=== PATIENT | female | born 1935 | race Caucasian/White ===

== ENCOUNTER 2020-01-02 13:59 | Inpatient (IN) | payer OTHER, MEDICARE ==
[~2020-01-02] VITALS: Ht 172.7 cm; Wt 98.4 kg
[~2020-01-02 13:59] MED LIST: ACCUPRIL PO; CADUET 5 MG-401 EACH PO; PERCOCET 5-3251 EACH PO; TRIAMTERENE-HC1 EAC1 PO
[2020-01-02 14:09] VITALS: BP 122/74
[2020-01-02 14:27] LABS: ABSOLUTE NEUTROPHILS 5.8 thou/uL (1.4-8.2); BASOPHILS 0.7 % (0.0-2.0); EOSINOPHILS 0.7 % (0.0-3.0); HEMATOCRIT 46.9 % (37.0-47.0); HEMOGLOBIN 15.4 gm/dL (12.0-15.0); LYMPHOCYTES 13.7 % (24.0-44.0); MCH 33.5 pg (26.0-34.0); MCHC 32.9 g/dL (28.0-37.0); MCV 101.7 fL (80.0-100.0); MONOCYTES 6.4 % (1.0-8.0); PLATELET COUNT 176 thou/uL (150-400); POLYS 78.5 % (36.0-66.0); RBC 4.61 mil/uL (4.20-5.00); RDW 14.1 % (10.5-14.5); WBC 7.4 thou/uL (4.0-11.0)
[2020-01-02 14:40] LABS: CALCIUM 9.3 mg/dL (8.5-10.1); CREATININE 0.9 mg/dL (0.6-1.0); POTASSIUM 3.3 mmol/L (3.5-5.1)
[2020-01-02 14:43] LABS: TROPONIN-I 0.09 ng/mL (<0.06)
[2020-01-02 15:40] LABS: URINE BLOOD 2+ (Negative); URINE CLARITY CLOUDY; URINE GLUCOSE-RANDOM* TRACE (Negative); URINE KETONES 1+ (Negative); URINE LEUKOCYTES-REFLEX NEGATIVE (Negative); URINE NITRITE-REFLEX NEGATIVE (Negative); URINE PROTEIN (DIPSTICK) 3+ (Negative); URINE SPECIFIC GRAVITY >= 1.030 (1.005-1.035)
[2020-01-02 15:43] LABS: ICTOTEST (BILI CONFIRMATORY) Negative (Negative); URINE BILIRUBIN NEGATIVE (Negative); URINE COLOR DARK YELLOW
[2020-01-02 15:50] LABS: COARSE GRANULAR CASTS 0-3 Few /LPF (None Seen)
[2020-01-02 15:51] LABS: BACTERIA-REFLEX 1-9 Few /HPF (None Seen); CRYSTALS None Seen /LPF (None Seen); SQUAMOUS 0-3 Few /LPF (0-3); URINE RBC 0-2 Rare /HPF (0-2); URINE WBC-REFLEX 0-5 Rare /HPF (0-5)
--- NOTE | 2020-01-02 16:27 | EKG ---
[facility] [place] [address] ELECTROCARDIOGRAM REPORT Name: PASCUAL ADRIAN Room #: [facility]#: [id number] Admission: 01/02/20 Attend Phys: Discharge: Date of : 34 Report #: [id number] THIS REPORT FOR: cc: Blue Monroe MD, Bruce H. MD Lundgren,Jim Leigh MD [facility] ~ THIS REPORT FOR: //name// [facility] ED Test Date: 2020-01-02 Test Time: 14:36:43 Pat Name: PASCUAL ADRIAN Department: Room: Gender: F Warp Knitter: KAREN : 1935 Requested By: Jacob Gage Order Number: [id number] MD: Jim Barbosa Measurements Intervals Raven Rate: 120 P: 70 PA: 155 QRS: 40 QRSD: 103 T: 184 QT: 293 QTc: 414 Interpretive Statements Sinus tachycardia with occasional premature ventricular complexes Poor R wave progression Nonspecific ST and T wave abnormality No previous ECG available for comparison Electronically Signed On 01-02-2020 16:26:05 PRODUCT DEVELOPMENT by Jim Barbosa [email or web address] <ELECTRONICALLY SIGNED> By: Jim Barbosa MD, [facility] 01/02/20 1626 1436 1436 Jim Barbosa MD, [facility] /EPI
[2020-01-02 18:09] VITALS: BP 130/75
--- NOTE | 2020-01-02 18:27 | NUR ---
FIRST ATTEMPT TO CALL REPORT 182
[2020-01-02 18:33] VITALS: BP 107/45
[2020-01-02 19:29] VITALS: BP 114/48
[2020-01-02 23:16] VITALS: BP 112/67
[2020-01-03] VITALS (7 sets, daily range): BP systolic 111–144; BP diastolic 54–95
--- NOTE | 2020-01-03 05:16 | NUR ---
ASSUMED PT CARE AT 1945. PT IS ALERT AND ORIENTED WITH NO SIGN OF DISTRESS NOTED. PT CAME FROM THE ER AT SHIFT CHANGE. ADMISSION ASSESSMENT AND DATA COMPLETED. FALL PRECAUTION IN PLACE. PT HAS A HX L BKA AND WEAR PROTHESICS. DENIES ANY PAIN, SCHEDULED MEDS ADMINISTERED TO PT. TOLERATED PO INTAKE. PT IS ON CARDIZEM DRIP DUE TO AFLUTTER. RATE CONTROLLED. CONTINUE TO MONITOR PATIENT.
[2020-01-03 06:33] LABS: HEMATOCRIT 43.5 % (37.0-47.0); HEMOGLOBIN 14.3 gm/dL (12.0-15.0); MCH 33.3 pg (26.0-34.0); MCHC 32.8 g/dL (28.0-37.0); MCV 101.4 fL (80.0-100.0); RBC 4.29 mil/uL (4.20-5.00); RDW 14.1 % (10.5-14.5); WBC 6.8 thou/uL (4.0-11.0)
[2020-01-03 06:52] LABS: CALCIUM 8.4 mg/dL (8.5-10.1); CREATININE 0.8 mg/dL (0.6-1.0); POTASSIUM 3.4 mmol/L (3.5-5.1)
--- NOTE | 2020-01-03 11:11 | 2DMMODE ---
[facility] [place] [address] 2 D/M-MODE ECHOCARDIOGRAM Name: PASCUAL ADRIAN Room #: 219-P ADM IN M.R.#: [id number] Admission: 01/02/20 Attend Phys: Juno Hurtado MD Discharge: Date of : 34 Report #: [id number] THIS REPORT FOR: cc: Blue Monroe MD, Bruce H. MD Lammoglia, Francisco J. MD ~ APPROVED REPORT Study performed: 01/03/2020 09:05:52 EXAM: Comprehensive 2D, Doppler, and color-flow Echocardiogram Patient Location: Bedside Room #: 219 Status: on-call BSA: 2.24 HR: 90 bpm BP: 144/95 mmHg Other Information Study Quality: Good/sitting up in bed Indications Atrial flutter/fib. Hx: HTN, HLP. 2D Dimensions RVDd: 51.29 mm IVSd: 10.58 (7-11mm) LVOT Diam: 20.85 (18-24mm) LVDd: 49.19 mm PWd: 10.56 (7-11mm) LVDs: 38.26 (25-40mm) Aortic Root: 32.96 mm Volumes Left Atrial Volume (Systole) Single Plane 4CH: 61.65 mL Single Plane 2CH: 75.53 mL LA ESV Index: 33.00 mL/m2 Aortic Valve AoV Peak Jacinto.: 1.62 m/s AO Peak Gr.: 13.98 mmHg LVOT Max P.02 mmHg LVOT Max V: 0.99 m/s YAEL Vmax: 2.09 cm2 [facility] [address] [place] [address] 2 D/M-MODE ECHOCARDIOGRAM Name: PASCUAL ADRIAN Room #: 219-P [facility]#: [id number] Admission: 01/02/20 Attend Phys: Juno Hurtado MD Discharge: Date of : 34 Report #: [id number] Mitral Valve MV Decel. Time: 155.92 ms MV E Max Jacinto.: 1.33 m/s Pulmonary Valve PV Peak Jacinto.: 1.05 m/s PV Peak Gr.: 4.37 mmHg Tricuspid Valve TR Peak Jacinto.: 2.92 m/s RAP Estimate: 10.00 mmHg TR Peak Gr.: 34.41 mmHg PA Pressure: 44.00 mmHg Left Ventricle The left ventricle is normal size. There is normal LV segmental wall motion. There is normal left ventricular wall thickness. Left ventricular systolic function is normal. LVEF is 55%. This study is not technically sufficient to allow evaluation of the LV diastolic function due to atrial fibrillation. Right Ventricle Right ventricle is severely dilated. Right ventricle is moderately hypokinetic. Atria Left atrium is mildly dilated. Right atrium is severely dilated. Aortic Valve The aortic valve is normal in structure. Leaflets are moderately calcified. No aortic regurgitation is present. There is no aortic valvular stenosis. Mitral Valve Mitral valve leaflets are thickened and calcified. Mild to moderate mitral regurgitation. No evidence of mitral valve stenosis. Tricuspid Valve The tricuspid valve is normal in structure. Moderate tricuspid regurgitation. Estimated PAP is 45mmHg. Pulmonic Valve Pulmonic valve is not well visualized. Great Vessels The aortic root is normal in size. Ascending aorta is not well [facility] [address] [place] [address] 2 D/M-MODE ECHOCARDIOGRAM Name: PASCUAL ADRIAN Room #: 219-P [facility] IN [facility]#: [id number] Admission: 01/02/20 Attend Phys: Juno Hurtado MD Discharge: Date of : 34 Report #: [id number] visualized. IVC is normal in size and collapses <50% with inspiration. Pericardium There is no pericardial effusion. <Conclusion> The left ventricle is normal size. LVEF is 55%. Right ventricle is severely dilated. Right ventricle is moderately hypokinetic. Left atrium is mildly dilated. Right atrium is severely dilated. The aortic valve is normal in structure. Leaflets are moderately calcified. Mitral valve leaflets are thickened and calcified. Mild to moderate mitral regurgitation. The tricuspid valve is normal in structure. Moderate tricuspid regurgitation. Estimated PAP is 45mmHg. Pulmonic valve is not well visualized. There is no pericardial effusion. <ELECTRONICALLY SIGNED> By: Rodo Bueno MD 01/03/201109 09 09 Rodo Bueno MD /INF
--- NOTE | 2020-01-03 16:38 | NUR ---
PT CARE ASSUMED APPROXIMATELY 0700. PT ASSESSMENTS CHARTED. PT MEDICATIONS CHARTED. PT IS A LEFT BELOW KNEE AMPUTEE WITH PROSTHESIS. PT REMAINS ON AMIODARONE TITRATED TO MAINTAIN HEART RATE PARAMETERS.
[2020-01-04 03:30] VITALS: BP 136/68
--- NOTE | 2020-01-04 04:56 | NUR ---
ASSUMED PT CARE AT 190. PT IS ALERT AND ORIENTED. NO SIGN OF DISTRESS NOTED IN PT. PT IS STABLE. A-FLUTTER NOTICED ON THE MONITOR. DENIES ANY PAIN. FALL PRECAUTION IN PLACE. ASSESSMENT COMPLETED AND DOCUMENTED. VITAL SIGNS STABLE. CONTINUE TO MONITOR PT. DENIES ANY NEEDS AT THIS TIME.
[2020-01-04 05:51] LABS: ALBUMIN 2.6 g/dL (3.4-5.0); CALCIUM 8.3 mg/dL (8.5-10.1); CREATININE 0.7 mg/dL (0.6-1.0); POTASSIUM 3.3 mmol/L (3.5-5.1); TOTAL BILIRUBIN 0.9 mg/dL (<0.1-1.0); TOTAL PROTEIN 6.2 g/dL (6.4-8.2)
[2020-01-04 08:10] VITALS: BP 116/72
[2020-01-04 08:28] VITALS: BP 116/72
[2020-01-04 12:30] VITALS: BP 133/65
[2020-01-04 16:30] VITALS: BP 139/85
--- NOTE | 2020-01-04 18:07 | NUR ---
PT CARE ASSUMED APPROXIMATELY 0700. PT ASSESSMENTS CHARTED. PT MEDICATIONS GIVEN. PT REMAINS ON CARDEZIEM AT 10 MG/MIN. PT DENIES PAIN AND IS IN GOOD SPIRITS.
[2020-01-04 20:19] VITALS: BP 116/82
[2020-01-05 00:30] VITALS: BP 137/75
[2020-01-05 04:47] VITALS: BP 146/83
[2020-01-05 05:38] LABS: CALCIUM 8.7 mg/dL (8.5-10.1); CREATININE 0.7 mg/dL (0.6-1.0); POTASSIUM 3.4 mmol/L (3.5-5.1)
--- NOTE | 2020-01-05 05:56 | NUR ---
A/O X 3.DENIES PAIN.NPO SINCE MIDNIGHT FOR A POSSIBLE STRESS TEST TODAY.ON CARDIZEM GTT.MONITOR SHOWS AFIB.POC CONTINUED.
[2020-01-05 08:00] VITALS: BP 127/78
--- NOTE | 2020-01-05 08:02 | NUR ---
ASSUMED CARE OF PT APPROX 0715, A&0X4, STATES SHE LIVES ALONE, STATES SHE WAS GETTING AROUND OKAY BUT HER RIGHT LEG HAS BEEN TOO WEAK. ENCOURAGED HER WHILE RESTING/HEALING TO STRETCH AND DO SOME LEG LIFTS IF POSSIBLE. STATES HER AMPUTATION WAS ABOUT THREE YEARS AGO, WEARS PROSTHESIS AT HOME, AT TIMES. HAS SOA IN BED, 3L IS HER BASELINE. WILL PRINT OUT DYSRHYTHMIA SHEET SHE'S ASKING QUESTIONS. 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 RLE CELLULITIS, CHRONIC. ENCOURAGED HER TO USE CALL LIGHT FOR ANY NEEDS. HAS BEEN WORKING WITH [facility].SEE SEPARATE INTERVENTIONS FOR ASSESSMENTS. HAS STRESS TEST THIS A.M.
--- NOTE | 2020-01-05 10:32 | NUR ---
PT'S WHEEL CHAIR AT HOME IS VERY OLD AND NOW BROKE; SHE'S ASKING ABOUT SUPPLIES FOR HOME TO HELP WITH DAILY LIVING CONSIDERING HER LBKA. BARS, ETC. WILL SPEAK WITH CASE MGMT WHEN DISCUSSING PT.
--- NOTE | 2020-01-05 11:14 | NUR ---
PHYSICIAN CALL: PT NPO SCHEDULED FOR NUC STRESS TEST, ORDERS GIVEN TO D/C GTT AND START PO, NUC MED SAID THEY NEEDED TO WAIT UNTIL TOMORROW FOR STRESS TEST, 'S OFFICE CALLED TO SAY PT COULD TAKE THE MEDICATIONS AND THEY WOULD 'DO SOMETHING ELSE'. GAVE HER HALF A MUFFIN AND THREE BITES OF APPLESAUCE WITH A.M. MEDS SO SHE WOULDN'T BECOME NAUSEAS. THEN ACK ORDERS FOR CARDIAC CATH TODAY JUST NOW. CALLED OFFICE TO GIVE THEM AN FYI.
[2020-01-05 11:50] VITALS: BP 115/60
[2020-01-05 13:00] LABS: TSH 3.3 uIU/mL (0.358-3.740)
--- NOTE | 2020-01-05 15:00 | NUR ---
Pt admit d/t weakness. Consult for wound. Hx HTN, high cholesterol, left BKA. EKG indicated atrial flutter. 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 Also right LE edema and nonhealing wound. Pt reported poor appetite and intake for about 1 week prior to admit d/t fatigue and weakness. Stated she normally only eats about 2 meals per day. Appetite over admit has been much better and Pt stated the consistent timing of meals helps with her intake. Discussed importance of protein foods for wound healing and limits on fat and sodium for heart healthy diet. Intake was 100% yesterday. Weight increased from 248# to 266#, positive fluid balance noted. Meds include budesonide, lipitor, fish oil, spironolactone. B, K: 3.4. Pt was aware of how to call in meal changes. Consider to be low nutritional risk at this time.
--- NOTE | 2020-01-05 15:11 | NUR ---
Net with patient who reports she lives at home alone. All needs on one level. patient reports she was rec HH cryptanalyst but cannot recall HH agency. patient has BKA and prosethesis. She reports she needs a wc at home. She has a broken one and has had for many years. She has home oxygen usu at 2.5 liters. Kiley Jasso is provider. PCP Dr Blue Salomon he is out of . Patient has a dog at home that her friend is caring for at this time. Discussed skilled care possible need for rehab. patient strongly wants to dc home when stable. Therapy evals in process.
[2020-01-05 17:00] VITALS: BP 131/84
[2020-01-05 20:00] VITALS: BP 130/76
[2020-01-06] VITALS (16 sets, daily range): BP systolic 106–141; BP diastolic 57–92
--- NOTE | 2020-01-06 05:41 | NUR ---
NPO SINCE MIDNIGHT FOR A POSSIBLE PROCEDURE TODAY.REPOSITIONED.MONITOR SHOWS AFIB WITH RVR.CARDIZEM PO X 1 GIVEN.HEART RATE IS NOW CONTROLLED.O2 3L NC.POC CONTINUED.
--- NOTE | 2020-01-06 10:51 | NUR ---
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 ON 3L NC, AFIB RATE CONTROLLED. DENIES PAIN, PO CARDIZEM GIVEN THIS AM WITH SIPS OF WATER. WILL CONTINUE TO ASSESS AND ASSIST WITH ADLs NEEDED.
--- NOTE | 2020-01-06 13:20 | NUR ---
PATIENT SEEN FOR ACUTE REHAB CONSULT BY MARIA R FRENCH NP WITH DR. ANDERS. PATIENT IS A CANDIDATE FOR ACUTE REHAB. 5N ABLE TO ACCEPT PATIENT. PATIENT HAVING PROCEDURE THIS DATE, BUT ANTICIPATE WILL BE MEDICALLY READY FOR REHAB ADMISSION TOMORROW, 01/07. REHAB BED AVAILABLE FOR TOMORROW. THANK YOU FOR THIS REFERRAL.
--- NOTE | 2020-01-06 17:32 | NUR ---
PT CAME back from technical laboratory asst at 1445, hemostasis was 1430, bedrest until 2030. left groin site is clean, dry, intact. vs documented as per flowsheet. will continue to assess and assist with adlS as needed.
[2020-01-07 05:07] VITALS: BP 152/75
--- NOTE | 2020-01-07 05:45 | NUR ---
ASSUMED PT CARE AROUND 1910. PT WAS RESTING IN BED WATCHING TELEVISION. PT WAS OFF BEDREST FROM PROCEDURE AT 2030. DRESSING TO LEFT GROIN SITE C/D/I. PT HAD NO C/O PAIN, N/V/D, OR SOA. PT VITALS REMAINED STABLE. PT VOIDED POST BEDREST WITH ADEQUATE OUTPUT. PT RESTED THRU NIGHT WITH MINIMAL INTERRUPTIONS. WILL CONTINUE TO MONITOR PT PER PLAN OF CARE.
[2020-01-07 06:02] LABS: HEMATOCRIT 44.7 % (37.0-47.0); HEMOGLOBIN 14.4 gm/dL (12.0-15.0); MCHC 32.1 g/dL (28.0-37.0); MCV 102.7 fL (80.0-100.0); RBC 4.36 mil/uL (4.20-5.00); RDW 14.8 % (10.5-14.5); WBC 7.4 thou/uL (4.0-11.0)
[2020-01-07 06:07] LABS: CALCIUM 8.6 mg/dL (8.5-10.1); CREATININE 0.6 mg/dL (0.6-1.0); POTASSIUM 3.8 mmol/L (3.5-5.1)
[2020-01-07 07:50] VITALS: BP 146/73
--- NOTE | 2020-01-07 09:55 | NUR ---
ASSUMED CARE AT 0700, SHIFT ASSESSMENT DONE, MEDS GIVEN, VSS. DR BANSAL'S NURSE INDICATED PT IS NOT GOING TO GO FOR SURGERY TODAY. AFIB RATE CONTROLLED ON THE MONITOR. WOUND CARE TO THE RIGHT LOWER LEG DONE. CATH SITE, LEFT GROIN, IS CLEAN DRY INTACT, NO HEMATOMA. WILL CONTINUE TO ASSESS AND ASSIST WITH ADLs NEEDED.
[2020-01-07 11:00] VITALS: BP 135/85
--- NOTE | 2020-01-07 12:06 | NUR ---
patient accepted to 5N once Dr Enriquez clears to transfer. RN reports Dr Enriquez saw patient and in discussion with consultants regarding intervention. No sx today. Updated patients sister in law Valerie .
[2020-01-07 16:40] VITALS: BP 116/71
[2020-01-07 19:35] VITALS: BP 122/72
--- NOTE | 2020-01-07 22:39 | CATHLAB ---
[facility] [place] [address] INVASIVE PROCEDURE REPORT Name: PASCUAL ADRIAN Room #: 219-P ADM IN M.R.#: [id number] Admission: 01/02/20 Attend Phys: Juno Hurtado MD Discharge: Date of : 34 Report #: [id number] THIS REPORT FOR: cc: Blue Monroe MD, Bruce H. MD Lammoglia, Francisco J. MD ~ APPROVED REPORT Study performed: 01/06/2020 13:29:19 Patient Details Patient Status: In-Patient Room #: 219 The patient is a 84 year-old female Event Personnel Rodo Bueno Traffic Investigator; , Mathew Ibrahim RN, Sarah Tolbert RTR Neil Watson Nancy RTR, SURFACE MOUNT TECHNOLOGY OPERATOR Monitor Procedures Performed Left Heart Cath w/or w/o Coronaries [id number] [facility] 19479 Initial Mod Sed Same Phys/QHP Gr 301689 34419 Mod Sed Same Phys/QHP Ea [id number] Hemostasis with Manual pressure, supervision of conscious sedation Indication Atrial fibrillation, Chest pain Procedure Narrative A 5F 11CM CORDIS sheath was inserted into the LFA^. Coronary angiography was performed using coronary diagnostic catheters. The right coronary system was accessed and visualized with a JR4 catheter. The left coronary system was accessed and visualized with a JL4 catheter. The left ventricle was accessed and visualized with a angled pigtail catheter. Left ventricular/Aortic Valve gradient assessed via catheter pullback. Hemostasis was obtained with manual pressure following sheath removal without any complications. The patient tolerated the procedure well and there were no complications associated with the procedure. There was no hematoma. Intraoperative Conscious Sedation Sedation start time: 12:36 Case end Time: 14:16 Fentanyl 50 mcg Versed [address] mg [facility] [place] [address] INVASIVE PROCEDURE REPORT Name: PASCUAL ADRIAN Room #: 219-P [facility] IN [facility].#: [id number] Admission: 01/02/20 Attend Phys: Juno Hurtado MD Discharge: Date of : 34 Report #: [id number] Visipaque 270-128ml was used for lower extremity runoff Conscious sedation is a total for lower extremity runoff and the left heart cath. Fluoro time and dose are a combined total for the lower extremity runoff and left heart cath. Fluoro Time: 7.96 minutes Dose: DAP 17363.80 cGycm2 1863 mGy Contrast Type and Amount: Omnipaque 45 ml Coronary Angiography The patient's coronary anatomy is right dominant. Diagnostic Cath Left Main large caliber vessel normal origin bifurcates left into the seventh of circumflex free of high-grade disease LAD once a large caliber type III vessel courses in the anterior interventricular sulcus. This was a septal diagonal branches without high-grade lesions noted. The proximal mid LAD there is a little region of haziness but appears to be secondary to a tortuosity in the vessel itself. There is luminal irregularities present but no high-grade obstructive lesions Diagonal 1 small-caliber vessel coursing along the anterolateral wall for short distances. High-grade disease but highly tortuous Diagonal 2 diminutive size vessel without high-grade lesions but quite tortuous in its course Circumflex to a vessel of normal origin coursing the AV groove to the lateral aspect of the heart. It gives rise to a large bifurcating marginal branch and then terminates as a posterior wall branch. The vessels are highly tortuous digestive of hypertensive heart disease. No irregularities are present but no high-grade lesions are noted OM1 moderate caliber bifurcating vessel which is free of high-grade disease OM2 small to moderate caliber vessel without significant stenosis noted but mild irregularities are present Right Coronary moderate caliberr vessel of normal origin coursing in the AV groove to the crux of the heart. Giving rise to atrial and right ventricular branches was a small in size and length. There is a proper then gives rise to a small posterior descending artery and terminates as a small posterior wall branch R PDA small caliber vessel coursing in the posterior interventricular sulcus free of high-grade disease although there is evidence of irregularities of mild to moderate level. Left Ventriculography [address] [address] INVASIVE PROCEDURE REPORT Name: PASCUAL ADRIAN Room #: 219-P [facility] IN M.R.#: [id number] Admission: 01/02/20 Attend Phys: Juno Hurtado MD Discharge: Date of : 34 Report #: [id number] Left Ventriculography was not performed. Hemodynamics The aortic pressure is 142/80 mmHg with a mean of 102 mmHg. The left ventricular pressure is 160/24 mmHg with a mean of mmHg. The left ventricular end diastolic pressure is 37 mmHg. Conclusion 1. Coronary artery disease mild nonobstructive with highly tortuous vessel consistent with hypertensive cardiomyopathy 2. Abnormal hemodynamics with elevated liver ventricular end-diastolic pressure. Recommendations Cardiac Risk Reduction Program Medical Therapy <ELECTRONICALLY SIGNED> By: Rodo Bueno MD 01/07/202237 37 37 Rodo Bueno MD /INF
[2020-01-08 04:15] VITALS: BP 117/88
--- NOTE | 2020-01-08 05:47 | NUR ---
ASSUMED PATIENT CARE AROUND 1909. PT RESTING IN BED WATCHING TELEVISION. PT HAD ADEQUATE INPUT/OUTPUT THRU NIGHT. PT HAD ZERO C/O OF SOA, PAIN, N/V/D. WOUND CARE AND DRESSING CHANGE TO RIGHT LOWER EXTREMITY PER ORDERS. PT CONTINUED RECEIVING FLUIDS PER IV. WILL CONTINUE TO MONITOR PER PLAN OF CARE.
[2020-01-08 07:30] VITALS: BP 127/63
[2020-01-08 11:30] VITALS: BP 123/76
[2020-01-08] MEDS ORDERED: LIPITOR40 MG PO (12:14)
[2020-01-08] MEDS ORDERED: DILTIAZEM 24HR180 M1 PO (12:15)
--- NOTE | 2020-01-08 13:03 | NUR ---
Pt cleared for dc to acute rehab on 5N today. Pt is aware and agreeable. Her sister in law Valerie was notified as well as she is agreeable. Nursing to call report this afternoon and confirm room number. 5N cm to follow along and arrange for hh/dme needs when dc'd home from rehab.
--- NOTE | 2020-01-11 08:46 | HC ---
[facility] [place] [address] CONSULTATION Name: PASCUAL ADRIAN Room #: 219-P [facility] IN M.R.#: [id number] Admission: 01/02/20 Attend Phys: Juno Hurtado MD Discharge: 01/08/20 Date of : 33 Report #: [id number] THIS REPORT FOR: cc: Blue Monroe MD, Bruce H. MD Forman, John M. MD ~ CC: Blue Hurtado DATE OF SERVICE: 01/06/2020 We were asked by Dr. Boles to see the patient. HISTORY OF PRESENT ILLNESS: The patient is an 84-year-old admitted on 01/02/2020 complaining of generalized weakness. The patient had multiple falls in the last few days prior to admission. The patient lives alone at home. PAST MEDICAL HISTORY: Significant for knee replacements and bilateral ankle fractures. 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 MEDICATIONS AT HOME: Includes quinapril, amlodipine, atorvastatin, triamterene/hydrochlorothiazide. ALLERGIES: None known. PAST SURGICAL HISTORY: Previous surgery, bilateral knee replacements, bilateral ankle replacements and knee amputation. FAMILY HISTORY: Not contributory. SOCIAL HISTORY: The patient states she has no children. REVIEW OF SYSTEMS: GENERAL/CONSTITUTIONAL: Negative for fevers. Positive for generalized weakness. EYES: No eye pain, no vision change. EARS: No rhinorrhea, sore throat. RESPIRATORY: No cough, shortness of breath. CARDIAC: No chest pain or palpitations. GASTROINTESTINAL: No nausea, vomiting, abdominal pain or blood. GENITOURINARY: No burning, frequency, urgency or blood. MUSCULOSKELETAL: No bone or joint pain. SKIN: No rash or infection. Per se, the patient is being treated for a nonhealing ulcer on the posterior right calf. ENDOCRINE: Denies diabetes or thyroid problems. [facility] [address] [place] [address] CONSULTATION Name: PASCUAL ADRIAN Room #: 219-P [facility]#: [id number] Admission: 01/02/20 Attend Phys: Juno Hurtado MD Discharge: 01/08/20 Date of : 34 Report #: [id number] HEMATOLOGIC AND LYMPHATIC: No bleeding. No easy bruisability. PHYSICAL EXAMINATION: GENERAL: The patient is lying in bed, status post cardiac catheterization. VITAL SIGNS: Temperature 36.6, pulse rate 87, respiratory rate 20, blood pressure 139/71, O2 sat 93 on 3 liters. HEENT: No scleral icterus, no arcus. NECK: No mass, no bruit. CHEST: Clear on the right side, decreased breath sounds, somewhat on the left side. __ pitched wheeze seems to be airway rather than pulmonary per se. CARDIAC: Distant heart tones. I do not hear a murmur. ABDOMEN: Soft, no mass. EXTREMITIES: We note the left below knee amputation and right leg has a bandage on the posterior calf, groin has intertriginous areas that are somewhat macerated. I do not feel right-sided popliteal or distal pulses. 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 There was a particular subtotal occlusion in the right common femoral artery. The aorta and iliac vessels were patent, but clearly calcified. We have been asked to assess the patient for right femoral endarterectomy certainly anatomically this is reasonable. My overriding concern is risk of infection with this procedure. It is difficult to cleanse the groin in the best case, but there may be chronic colonization that would predispose the perioperative infection. If it is felt that this procedure is necessary for wound healing, then it would be reasonable to proceed. I will confer with the others. Thank you for the consult. <ELECTRONICALLY SIGNED> By: Markie Vallecillo MD 01/11/20 [id number] Markie Vallecillo MD /nt
== END 2020-01-08 16:07 | DRG 286 ==
LOC: ER 13:59 → EROBS 17:18 → 2N 17:18
PROVIDERS: Emergency Medicine; Internal Medicine; Internal Medicine Geriatric Medicine; Nurse Practitioner; ADMIT Hospitalist
PROC: 4A023N7 Measurement of Cardiac Sampling and Pressure, Left Heart, Percutaneous Approach (ICD-10-PCS; principal; 2020-01-02)
PROC: B2111ZZ Fluoroscopy of Multiple Coronary Arteries using Low Osmolar Contrast (ICD-10-PCS; principal; 2020-01-02)
DX: I48.91 Unspecified atrial fibrillation (principal); E43 Unspecified severe protein-calorie malnutrition; L97.229 Non-pressure chronic ulcer of left calf with unspecified severity; I74.3 Embolism and thrombosis of arteries of the lower extremities; I73.9 Peripheral vascular disease, unspecified; I10 Essential (primary) hypertension; Z96.653 Presence of artificial knee joint, bilateral; Z96.662 Presence of left artificial ankle joint; Z96.661 Presence of right artificial ankle joint; E78.00 Pure hypercholesterolemia, unspecified; E78.5 Hyperlipidemia, unspecified; I49.9 Cardiac arrhythmia, unspecified; J44.9 Chronic obstructive pulmonary disease, unspecified; I77.1 Stricture of artery; S81.801A Unspecified open wound, right lower leg, initial encounter; X58.XXXA Exposure to other specified factors, initial encounter; E83.42 Hypomagnesemia; E87.6 Hypokalemia; G47.00 Insomnia, unspecified; Z99.81 Dependence on supplemental oxygen; Z68.33 Body mass index [BMI] 33.0-33.9, adult; Z91.81 History of falling; Y92.89 Other specified places as the place of occurrence of the external cause; Z79.01 Long term (current) use of anticoagulants; Z89.512 Acquired absence of left leg below knee; Y93.89 Activity, other specified; Z79.891 Long term (current) use of opiate analgesic; Y99.8 Other external cause status; Z79.899 Other long term (current) drug therapy
CPT/HCPCS: 10081

== ENCOUNTER 2020-01-07 13:54 | Inpatient (IN) | payer OTHER, MEDICARE ==
[~2020-01-07] VITALS: Ht 172.7 cm; Wt 107.5 kg
[2020-01-08] MEDS ORDERED: LIPITOR40 MG PO (12:14)
[2020-01-08] MEDS ORDERED: DILTIAZEM 24HR180 M1 PO (12:15)
[2020-01-08 16:20] VITALS: BP 125/94
--- NOTE | 2020-01-08 18:45 | NUR ---
PT ARRIVED TO UNIT VIA BED BY VOLUNTEER STAFF. ADMISSION EDUCATION PROVIDED, ADMISSION COMPLETE EXCEPT WOUND PICS WILL PASS INFO ALONG IN REPORT. CONSENTS SIGNED, FALL PRECAUTIONS IN PLACE. PT ON 5L NC, NO S/S RESPIRATORY DISTRESS NOTED. PATIENT DENIES PAIN OR OTHER NEEDS AT THIS TIME.
[2020-01-08 20:00] VITALS: BP 124/84
--- NOTE | 2020-01-09 02:34 | NUR ---
PT ALERT AND ORIENTED X 4. 02 ON AT 5L PER NC CONT. RLE WOUND DRESSING C/D/I. PT DENIES PAIN OR DISCOMFORT. BED ALARM ON FOR SAFETY. PT APPEARS TO BE SLEEPING ON HOURLY ROUNDS.
[2020-01-09 06:49] LABS: HEMATOCRIT 44.1 % (37.0-47.0); HEMOGLOBIN 14.3 gm/dL (12.0-15.0); MCH 33.3 pg (26.0-34.0); MCHC 32.4 g/dL (28.0-37.0); MCV 102.8 fL (80.0-100.0); RBC 4.29 mil/uL (4.20-5.00); RDW 14.9 % (10.5-14.5); WBC 6.9 thou/uL (4.0-11.0)
[2020-01-09 07:03] LABS: CREATININE 0.7 mg/dL (0.6-1.0); POTASSIUM 3.9 mmol/L (3.5-5.1)
--- NOTE | 2020-01-09 13:42 | NUR ---
Nutrition: pt admit to rehab unit with cardiac debility, hx Left BKA. Consulted due to wound which is RLE ulcer. PMH: HTN, Hypercholesterolemia, iliac femoral artery stenosis. BMI 43, extreme class 3 obesity. Weights trending up due to fluid. On spironolactone. Eating 80-90% of meals on Heart healthy carb controlled diet. No recent BG. Pt voices no questions for RD at present. Understands importance of protein foods and able to order meals. Consider low risk.
--- NOTE | 2020-01-09 14:42 | NUR ---
Met with patient who admits to rehab unit. Her neighbor is at bedside [place] [address] [facility] [place] [address]. He reports he checks on patient. They both use same dog boarder Marlen who is caring for patients dog while she is in rehab. Neighbor reports willing to be DPOA for health care for intermittant time in hospital. RN paged spiritual care. Patient agreeable. She has limited support. Her relative Valerie sister in law lives in [place]. Valerie notified of admission to rehab unit. "I hope you can help her." Valerie reports patient appears not motivated to help herself. She reports she sits most of day and does not excercise. Patient has a walker, prosethesis, w/c (she needs replaced). From [facility] has chair lift and lives [place]. MANAGEMENT ASSISTANT patient has HH with [place] at home. SHERI Padilla to visit in month or so.
--- NOTE | 2020-01-09 17:11 | NUR ---
RECEIVED PT'S CARE AROUND 704; PT. ON BED; A0X4; DURING ASSESSMENT NO C/O PAIN; ABLE TO HAVE BREAKFAST OVER WHEELCHAIR IN ROOM; EDUCATED ABOUT FALL PREVENTIONS; ST. UNDERSTANDING; AM MEDICATION GIVEN; PER OT REPORT PT. SOB WITH EXERTION; O2 UP 5L; PT. CHRONIC 02 2.5-3L; MODERATE NEEDS TEACHER NOTIFIED WHILE ROUNDING; CONSULT CALLED FOR DR. TRAVIS; PT'S HX BLOOD THINNER; ST; MODERATE NEEDS TEACHER NOTIFIED; WOUND CARE WILL BE PERFORMED AFTER DINNER; PT. ST UNDERSTANDING; DURING THE AFTERNOON NEIGHBOOR ST. CONCERNED ABOUT PT'S LIVING SITUATUION & DPOA; REQUESTED MEETING WITH PORTFOLIO SPECIALIST; PORTFOLIO SPECIALIST AWARED; ASSESSMENT CHARGED; FOLLOWING POC; WILL PASS ON REPORT;
[2020-01-09 19:55] VITALS: BP 121/78
--- NOTE | 2020-01-10 01:02 | NUR ---
PT ASSESSMENT COMPLETED AND VSS. MEDS GIVEN ORDERED AND WELL TOLERATED. FALL PRECAUTIONS IN PLACE. INC OF LARGE AMOUNT OF URINE. ASST WITH REPOSITION FOR COMFORT. BARRIER CREAM APPLIED TO COCCYX. SAT WNL ON 5L NC. PT SLEEPING WELL. DENIES NEEDS. WILL CONTINUE TO MONITOR FREQUENTLY.
[2020-01-10 08:10] VITALS: BP 140/81
--- NOTE | 2020-01-10 11:18 | NUR ---
ASSUMED CARE AT 0700. PATIENT IS A & O X4. PATIENT CRISTAL'Mo. PATIENT HAS OLD BKA. PATIENT HAS RIGHT LOWER LEG CELLULITIS. BORDER DRESSING CHANGED TO RIGHT LEG. PATIENT IS ON 6L PER N/C FOR COPD AND SOA. PATIENT IS INCONTINENT OF URINE AND BOWELS. PATIENT HAS S.L. IN HER RIGHT WRIST. UP IN THE CHAIR FOR BREAKFAST. FALL AND SAFETY PROTOCOLS IN PLACE. DENIES PAIN AT THIS TIME. CONTINUES TO PROGRESS SLOWLY TOWARDS D/C GOALS. WILL CONTINUE TO MONITER.
[2020-01-10 20:41] VITALS: BP 139/91
--- NOTE | 2020-01-10 23:05 | NUR ---
PT ASSESSMENT COMPLETED AND VSS. MEDS GIVEN ORDERED AND WELL TOLERATED. FALL PRECAUTIONS IN PLACE. PT HAD A BM AND VOIDING LARGE AMOUNT IN BEDPAN. INC OF LARGE AMOUNTS OF URINE. SAT WNL ON 5-6 L NC. ASST WITH REPOSITION FOR COMFORT. SLEEPING WELL. WILL CONTINUE TO MONITOR FREQUENTLY.
[2020-01-11 08:00] VITALS: BP 133/85
--- NOTE | 2020-01-11 11:16 | NUR ---
PT CARE ASSUMED AT 0700. A&Ox4. ON 5L SATING ON 96%. ON 2-3L AT HOME. EXTERNAL RICHARD APPLIED. LUNGS SOUND DIMINISHED. INCONTINENT TO BLADDER NOT BOWEL. EDEMA TO THE RIGHT LEG +2. PT LIVES ALONE AT HOME. IV IS PATENT WITH NO REDNESS OR EDEMA. SALINE LOCKED. FALL PROTOCOL IN PLACE. PT PIVOTS WITH 2 MAX ASSIST TO THE WHEELCHAIR. CALL LIGHT IN REACH.
[2020-01-11 11:25] VITALS: BP 133/85
[2020-01-11 19:33] VITALS: BP 122/78
--- NOTE | 2020-01-11 23:47 | NUR ---
PT ALERT AND ORIENTED X 4. 02 0N AT 5L PER NC CONT. INCONT OF URINE. FEMALE EXTERNAL CATHETER CHANGED. RIGHT LEG WOUND DRESSING CHANGED. NO DRAINAGE FROM WOUND. PT C/O BACK PAIN. TYLENOL GIVEN ORDERED. BED ALARM ON FOR SAFETY. PT APPEARS TO BE SLEEPING ON HOURLY ROUNDS.
[2020-01-12 07:01] VITALS: BP 125/76
[2020-01-12 19:35] VITALS: BP 123/71
--- NOTE | 2020-01-12 20:11 | NUR ---
PATIENT ALERT AND ORIENT AND COOPERATIVE WITH POC. CONTIUES ON 5LPM NC AND UP TO 8LPM WITH EXPERTION TO MAINTAIN O2 SATS.
--- NOTE | 2020-01-12 20:19 | HC ---
[facility] [place] [address] CONSULTATION Name: PASCUAL ADRIAN Room #: 509-P ADM IN M.R.#: [id number] Admission: 01/08/20 Attend Phys: Niko Dorsey MD Discharge: Date of : 34 Report #: [id number] THIS REPORT FOR: cc: Blue Monroe MD, Bruce H. MD Deutch,Adam Leblanc. PhD ~ CC: Blue Dorsey DATE OF SERVICE: 01/10/2020 NEUROBEHAVIORAL STATUS EXAM ATTENDING PHYSICIAN: Niko Dorsey MD WAGE CONCILIATOR: Adam Inman, PhD CLINICAL PRESENTATION: The patient is an 84-year-old female admitted to [facility] rehabilitation unit for comprehensive inpatient rehabilitation program. She was reported to have had problems with management of general health care needs and was admitted to the hospital with weakness, dizziness, poor appetite, atrial flutter, a right calf wound and peripheral vascular disease. Additionally, she has had a left [id number] amputation. Her assessment on admission to the rehab unit is medical complexity with generalized debilitation, atrial flutter, peripheral vascular disease with right common femoral artery 95% stenosis, right lower extremity wound, COPD and hypertension. A complete description of her medical condition and history along with medications can be found in her medical record. Neuropsychological consultation was requested to provide assistance in the assessment of cognitive and emotional status and to provide recommendations and services. She was living alone in her own home prior to this most recent medical event. Patient reports that she had been driving and independent with instrumental activities of daily living. Her was an alcoholic that from suicide following their divorce. She has no children. The patient describes herself as very isolated socially. She has very limited social support system. She is a college graduate. TECHNIQUES UTILIZED: Clinical interview, review of medical records, staff consultation and behavioral observation, mini mental status exam 2 standard version and verbal fluency assessment (letter and category). EXAMINATION FINDINGS: The patient was alert and cooperative with the assessment. She was somewhat vague in her description of the reason for her hospitalization. The patient indicates symptoms to include difficulty with word [facility] [address] [place] [address] CONSULTATION Name: PASCUAL ADRIAN Ronaldo Room #: 509-P [facility] IN .R.#: [id number] Admission: 01/08/20 Attend Phys: Niko Dorsey MD Discharge: Date of : 34 Report #: [id number] finding, memory and feelings of anxiety. She is worried about her plans for the future and being left alone. She does not report difficulty with sleep, appetite or energy level. Social isolation will likely contribute to intermittent periods of depression The patient's performance on the MMSE 2 brief version was a raw score of 13/16, which is a T score of 38 and percentile rank of 12. She was 3/3 for initial registration, 5/5 for orientation to time, 4/[address] and 1/3 for immediate recall of 3 items after a brief time delay and distraction. Performance on the MMSE 2 standard version improved to a raw score of 24 of 30, which is a T score 36 and percentile rank of 8. She was 4/5 for serial sevens, 2/2 for naming, 1/1 for repetition, 3/3 for auditory comprehension. She could read and follow single command. The patient was not able to write a sentence or accurately copy a simple geometric design. Clock drawing was generally within normal limits for number placement. However, hand placement was incorrect. Letter fluency was extremely low with a raw score of 10, T score of 23 and percentile rank of less than 1. Category fluency was a raw score of 21, which is a T score of 23 and percentile rank of less than 1. Overall, total fluency was a raw score of 31, T score 19, percentile rank of less than 1. Moderate deficits in verbal fluency are noted. The patient is presenting with cognitive deficits including immediate recall, visual spatial construction and verbal fluency, which often suggest executive dysfunction. DIAGNOSTIC IMPRESSION: Neurocognitive disorder (unspecified) -- extent to be determined, likely in the moderate range. Unspecified Anxiety Disorder RECOMMENDATIONS: The extent of her social isolation would suggest the need for placement in a alf community. Increased socialization and assistance in the management of instrumental activities of daily living, including driving will reduce stress and assist her overall wellbeing and recovery. Thank you very much for allowing me to provide the consultation on this patient. <ELECTRONICALLY SIGNED> By: Adam Inman, PhD 01/12/20 2019 [id number] Adam Inman, PhD /nt
--- NOTE | 2020-01-13 00:32 | NUR ---
PT ASSESSMENT COMPLETED AND VSS. MEDS GIVEN ORDERED AND WELL TOLERATED. FALL PRECAUTIONS IN PLACE. PRN TYLENOL HELFPUL FOR BACK PAIN. SAT WNL ON 5 L NC. RT FOLLOWING PT. DSG TO R LOWER LEG CHANGED. ASST WITH REPOSITION. SLEEPING WELL. DENIES NEEDS. WILL CONTINUE TO MONITOR FREQUENTLY.
[2020-01-13 08:10] VITALS: BP 145/71
[2020-01-13 13:25] LABS: HEMATOCRIT 46.7 % (37.0-47.0); HEMOGLOBIN 15.1 gm/dL (12.0-15.0); MCHC 32.3 g/dL (28.0-37.0); MCV 102.2 fL (80.0-100.0); RBC 4.58 mil/uL (4.20-5.00); RDW 14.6 % (10.5-14.5); WBC 9.1 thou/uL (4.0-11.0)
--- NOTE | 2020-01-13 13:32 | NUR ---
team meeting, recommendation: re team with dc on 01/25, will need assist with pills and bills, [facility] ( pt, ot, st, and nursing). possible wheel chair. cont with home oxygen.
[2020-01-13 13:39] LABS: CALCIUM 8.5 mg/dL (8.5-10.1); CREATININE 0.8 mg/dL (0.6-1.0); MAGNESIUM 1.5 mg/dL (1.8-2.4); POTASSIUM 3.5 mmol/L (3.5-5.1)
--- NOTE | 2020-01-13 13:52 | NUR ---
DISCHARGE PLANNING. DISCHARGE TO HOME WITH HOME HEALTH. ANTICIPATED DISCHARGE DATE 01/25 PER UNIT CM. PATIENT REFERRAL FAXED TO [facility] AT [facility]. CALL PLACED TO [facility], TO NOTIFY.
[2020-01-13 19:24] VITALS: BP 145/78
--- NOTE | 2020-01-13 19:56 | NUR ---
PATIENT ALERT AND ORIENTED WITH CONFUSION. RICHARD CATH PLACED DUE TO INCONTINECE FOR TRIAL PERIOD UNTIL SHE CAN GET STRONGER DUE TO INABILITY TO PARTICIPATE IN THERAPY AND URINE SOAKING THROUGH BREIFS. FRIEND, GALEN AT BEDSIDE THIS AFTERNOON.
--- NOTE | 2020-01-13 23:31 | NUR ---
PT ASSESSMENT DONE AND VSS. MEDS GIVEN AND WELL TOLERATED. FALL PRECAUTIONS IN PLACE. SLEEPING WELL OVERNIGHT. RICHARD PATENT AND DRAINING. HOURLY ROUNDING. CALL LIGHT IN REACH. WILL CONTINUE TO MONITOR.
[2020-01-14 07:45] VITALS: BP 124/79
--- NOTE | 2020-01-14 12:08 | NUR ---
PT ALERT AND ORIENTED TIMES FOUR. VSS, RICHARD TO DD. PT TOLERATES MEDS AND MEALS. PT WORKED WELL WITH PT/OT TODAY. PT SLOWLY PROGRESSING TOWRADS POC GOALS.
[2020-01-14 19:40] VITALS: BP 109/74
[2020-01-14 21:05] VITALS: BP 121/56
--- NOTE | 2020-01-14 22:29 | NUR ---
PT ASSESSMENT COMPLETED AND VSS. MEDS GIVEN ORDERED AND WELL TOLERATED. FALL PRECAUTIONS IN PLACE. RICHARD DRAINING MODERATE AMOUNT OF DARK YELLOW URINE. SAT WNL ON NC. PT DENIES NEEDS. WILL CONTINUE TO MONITOR FREQUENTLY.
[2020-01-15 04:41] LABS: CALCIUM 8.6 mg/dL (8.5-10.1); CREATININE 0.9 mg/dL (0.6-1.0); MAGNESIUM 1.6 mg/dL (1.8-2.4); POTASSIUM 3.4 mmol/L (3.5-5.1)
[2020-01-15 05:09] LABS: HEMATOCRIT 45.2 % (37.0-47.0); HEMOGLOBIN 14.8 gm/dL (12.0-15.0); MCH 33.1 pg (26.0-34.0); MCHC 32.8 g/dL (28.0-37.0); RBC 4.48 mil/uL (4.20-5.00); RDW 14.5 % (10.5-14.5); WBC 8.1 thou/uL (4.0-11.0)
--- NOTE | 2020-01-15 12:53 | NUR ---
Nutrition followup: pt continues on rehab unit with medical complexity, general debility. Hx left BKA. Venous RLE ulcer, followed by wound care. Pt eats well, 100% of meals. States she doesn't have the best appetite but pushes self to eat. Weights increasing over admit, No edema documented however is on lasix and spironolactone. No BG. BM 3/. Tiring of some food choices so RD assisted pt in changing dinner order-was pleased with some variety. Encouraged pt to request assistance if desiring to change meal orders. Protein needs reviewed. Low nutrition risk.
[2020-01-15 18:13] VITALS: BP 124/74
--- NOTE | 2020-01-15 20:28 | NUR ---
ASSUMED CARE OF PT AT 0700. PT IS A&OX4 AND VITAL SIGNS ARE STABLE. PT REPORTED SOME PAIN IN BACK, MANAGED WTIH PO MEDICAITONS PER ORDERS. PARTICIPATED IN SCHEDULED THERAPIES. O2 AT 6L VIA NC TO MAINTAIN SPO2 >90%. ON 2-3L AT HOME. RICHARD CATHETER IN PLACE FOR STRICT I&O'S. PREVIOUS L BKA, UNABLE TO WEAR PROSTETIC AT THIS TIME DUE TO WOUND AND EDEMA TO EXTREMITY. ONCOMING NURSE NOTIFIED ABOUT DRESSING CHANGE, UNABLE TO BE COMPLETED ON DAY SHIFT.
[2020-01-15 20:51] VITALS: BP 126/80
--- NOTE | 2020-01-16 04:42 | NUR ---
ASSUMED CARE AT APPROX 1900 EVENING 01/14. PT ALERT AND ORIENTED X4 APPROPRIATE AND COOPERATIVE. PT MAX ASSIST WITH SLIDEBOARD TO BED AT HS. RICHARD TO DD WITH DARK YELLOW URINE TO BAG. PT TOOK HS MEDS WITH WATER TOLERATING WELL. PT APPEARS TO BE SLEEPING SOUNDLY WITH HOURLY ROUNDING CHECKS. BED ALARM ON AND CALL LIGHT IN REACH. WILL CONTINUE TO MONITOR.
[2020-01-16 06:24] LABS: CALCIUM 8.5 mg/dL (8.5-10.1); POTASSIUM 3.6 mmol/L (3.5-5.1)
--- NOTE | 2020-01-16 19:52 | NUR ---
PATIENT ALERT AND ORIENTED. PATIENT 2 NEW STUMP TRIAGE TECHNICIAN FROM ARRIVED THIS EVENING. PATIENT CONTINUES TO NEED INCREASED O2 DURING THERAPY SESSIONS.
[2020-01-16 20:15] VITALS: BP 125/72
--- NOTE | 2020-01-16 23:07 | NUR ---
PT ASSESSMENT DONE AND VSS. MEDS GIVEN AND WELL TOLERATED. ALSO ASKED FOR TYLENOL X 2 FOR PAIN. COMPUTER NOT WORKING IN ROOM. USED NURSES STATION COMPUTER. NOT ABLE TO SCAN THE TYLENOL. LISTING IT HERE IN PT NOTES. FALL PRECAUTIONS IN PLACE. ASSISTED PT WITH 2 STAFF TO GET PT TRANSFERRED BY SLIDEBOARD INTO BED. SLEEPING WELL. HOURLY ROUNDING. CALL LIGHT IN REACH. WILL CONTINUE TO MONITOR.
[2020-01-17 06:24] LABS: CALCIUM 8.5 mg/dL (8.5-10.1); CREATININE 0.8 mg/dL (0.6-1.0); MAGNESIUM 1.9 mg/dL (1.8-2.4); POTASSIUM 3.7 mmol/L (3.5-5.1)
[2020-01-17 08:20] VITALS: BP 123/78
[2020-01-17 19:30] VITALS: BP 125/67
--- NOTE | 2020-01-17 19:41 | NUR ---
ASSUMED CARE OF PT AT 0700. PT IS A&OX4 AND VITAL SIGNS ARE STABLE. HR IRREGULAR, LUNG SOUNDS CLEAR OVER DIMINISHED, BOWEL SOUNDS ACTIVE IN ALL QUADRANTS. DRESSING TO LLE CHANGED PER ORDERS. RICHARD IN PLACE, DRAINING APPROPRIATELY WITH YELLOW URINE, NO SEDIMENT NOTED, 2200ML DRAINED DURING SHIFT. NOTED LARGE WEIGHT CHANGE THIS SHIFT. NURSING TO ENSURE DAILY WEIGHTS ARE COMPLETED PER ORDERS. IV TO RIGHT FOREARM REMOVED PER ORDERS FROM PROVIDER. 5L O2 REQUIRED TO MAINTAIN SPO2 >90%, INCREASED DURING THERAPIES NEEDED. FALL PRECAUTIONS IN PLACE, CALLS APPROPRIATELY, NURSING WILL CONTINUE TO MONITOR.
--- NOTE | 2020-01-17 23:33 | NUR ---
PT ASSESSMENT DONE AND VSS. MEDS GIVEN AND WELL TOLERATED. FALL PRECAUTIONS IN PLACE. SLEEPING WELL OVERNIGHT. HOURLY ROUNDING DONE. CALL LIGHT IN REACH. WILL CONTINUE TO MONITOR.
[2020-01-18 05:54] LABS: CALCIUM 8.8 mg/dL (8.5-10.1); CREATININE 1.1 mg/dL (0.6-1.0); MAGNESIUM 1.8 mg/dL (1.8-2.4); POTASSIUM 3.6 mmol/L (3.5-5.1)
[2020-01-18 08:00] VITALS: BP 133/76
--- NOTE | 2020-01-18 16:09 | NUR ---
ASSUMED CARE OF PT AT 0715. PT IS A&OX4. IS ON 5L OF O2 WITH HUMIDIFICATION. IS SATING IN THE LOW 90%. IS STABLE. IS REPOSITIONED Q2H. HAS LBKA & WOUND ON RLE WITH DRSG INTACT & PRAFO BOOT FOR PRESSURE RELIEF. PT IS UP WITH SLIDE BOARD TRANSFER X 2 ASSIST. FALL PRECAUTIONS & HOURLY ROUNDING MAINTAINED. RICHARD IN PLACE. DENIES PAIN. LABS & VITALS REVEIWED. PT IS CURRENTLY SITTING UP IN BED WATCHING TV. CALL LIGHTS WITHIN REACH.
[2020-01-18 20:20] VITALS: BP 101/69
--- NOTE | 2020-01-19 04:40 | NUR ---
ASSUMED ARE FROM DAY SHIFT PT HAVE NO CONCERNS VOICED , TURN EVERY 2 HOURS RICHARD WITH CLEAR YELLOW URINE. PO MEDICATION TAKEN EASLIY.RESTED WELL THROUGHOUT HOURLY ROUNDS WILL CONTINUE CURRENT PLAN OF CARE.
[2020-01-19 05:17] LABS: CALCIUM 8.5 mg/dL (8.5-10.1); MAGNESIUM 1.9 mg/dL (1.8-2.4); POTASSIUM 3.5 mmol/L (3.5-5.1)
--- NOTE | 2020-01-19 08:12 | NUR ---
ASSUMED CARE OF PT AT 0700. PT IS A&OX4. IS ON 5l O2/NC WITH HUMIDIFICATION. IS STABLE. DENIES SOB & PAIN. IS UP WITH SLIDE BOARD TRANSFER MAX ASSISTX2. FALL PRECAUTIONS & HOURLY ROUNDING MAINTAINED. LABS & VITALS REVIEWED. HAS LEFT BKA. 2 RLE WOUNDS. PICTURES TAKEN LAST NIGHT, IN CHART. DRSG C/D/I. IS TURNED Q2H. PT IS CURRENTLY WORKING WITH OT. CALL LIGHT WITHIN REACH. WILL CONTINUE TO MONITOR.
[2020-01-19 08:33] VITALS: BP 121/70
[2020-01-19 10:29] LABS: HEMATOCRIT 42.2 % (37.0-47.0); HEMOGLOBIN 13.7 gm/dL (12.0-15.0); MCH 32.9 pg (26.0-34.0); MCHC 32.5 g/dL (28.0-37.0); MCV 101.3 fL (80.0-100.0); PLATELET COUNT 170 thou/uL (150-400); RBC 4.17 mil/uL (4.20-5.00); WBC 6.1 thou/uL (4.0-11.0)
[2020-01-19 11:27] LABS: ABSOLUTE NEUTROPHILS 3.4 thou/uL (1.4-8.2); PLATELET ESTIMATE NORMAL
[2020-01-19 21:00] VITALS: BP 116/82
[2020-01-19 22:55] LABS: URINE BILIRUBIN NEGATIVE (Negative); URINE BLOOD 3+ (Negative); URINE CLARITY SL CLOUDY; URINE COLOR YELLOW; URINE GLUCOSE-RANDOM* NEGATIVE (Negative); URINE KETONES NEGATIVE (Negative); URINE PROTEIN (DIPSTICK) TRACE (Negative); URINE SPECIFIC GRAVITY 1.015 (1.005-1.035)
[2020-01-19 23:00] LABS: URINE LEUKOCYTES-REFLEX 3+ (Negative); URINE NITRITE-REFLEX POSITIVE (Negative)
[2020-01-19 23:46] LABS: BACTERIA-REFLEX 1-9 Few /HPF (None Seen); CASTS None Seen /LPF (None Seen); CRYSTALS None Seen /LPF (None Seen); MUCUS 0-3 Light strn/LPF (None Seen); SQUAMOUS 0-3 Few /LPF (0-3); URINE RBC >20 Many /HPF (0-2)
--- NOTE | 2020-01-20 02:50 | NUR ---
assumed care at approx 1900 evening 01/18. pt alert and oriented x4, pleasant and cooperative. 02 at 6l per n/c. stack to dd with concentrated yellow urine to bag. ua sent to lab. pt took hs meds with water tolerating well. pt appears to be sleeping soundly at present. bed alarm on and call light in reach. will continue to monitor.
[2020-01-20 08:00] VITALS: BP 119/69
--- NOTE | 2020-01-20 11:29 | NUR ---
Received awake on bed. Due medications given as prescribed. With O2 at 6lpm via nasal cannula- pt using O2 at home; on regular breathing treatments. On heart healthy diet- tolerating well; no nausea, no vomiting and no abdominal pain noted. Able to talk tablets whole w/o difficulty. With stack catheter in place- output measured and recorded accordingly. With Left BKA- stump media theorist and author of in place. With SL at R hand- removed while ongoing OT therapy while changing her clothes. With R LE cellulitis- dressing in place. Falls bundle in place. Assisted in ADLs. Vital signs stable. Participating and compliant with therapies.
--- NOTE | 2020-01-20 13:17 | NUR ---
team meeting, recommendation: has sreekanht. starting 1500 fluid restrictions. r lower ext wound care. will discussed dc option possible snf.needs 24hr care givers. have human arc visit with her rt possible ltc benefits. dc 01/25
--- NOTE | 2020-01-20 15:13 | NUR ---
WOUND CARE F/U; ROUNDING WITH DR MARCUS. THE WOUND HAS NO S/S OF INFECTION TODAY OR NEED TO MAKE ANY CHANGES TO THE POC. RECOMMENDATION; CONTINUE CURRENT TX DISCUSSED WITH TYRESE
[2020-01-20 19:35] VITALS: BP 113/59
--- NOTE | 2020-01-21 02:26 | NUR ---
assumed care at approx 1900 evening 01/19. pt alert and oriented x4, pleasant and cooperative. stack to dd with yellow urine in bag. pt took hs meds with water tolerating well. pt appears to be sleeping soundly with hourly rounding checks. bed alarm on and call light in reach. will continue to monitor.
[2020-01-21 06:44] LABS: CALCIUM 8.3 mg/dL (8.5-10.1); POTASSIUM 3.4 mmol/L (3.5-5.1)
--- NOTE | 2020-01-21 10:45 | NUR ---
cm visited with pt rt skilled rehab, provided skill list and senior blue book. noted pt had diff taking big am pills with out apple sauce, bedside nurse assisted pt with taking am medication with apple sauce and speech therapy cont to work with pt. " thanks for list not sure about [facility] but after rehab my lady who helps with dog said i could possible stay with her for little bit and can bring my dogie too, so have some option and i do not want to look into medicaid right now. thank you"/silvina. will send referral after pt picks location to send to.
--- NOTE | 2020-01-21 18:23 | NUR ---
Assumed patient care at 0715. O2 Sats have been dropping with transfers (from 90-92% on Oxygen per Nasal Cannula); Oxygen had to be titrated up to 0.8 to get saturations at a safe level. RT called to come and assess. Saturations returned to a safe level with no complaints of shortness of breath, O2 returned to 0.4. She has voiced no complaints since. Patient has consumed adequate amounts of food and fluids. She is alert and oriented x's 4. Patient has been compliant with all therapies but, is unable to do much before getting short of breath. MARGARET Esteban here, asked that nursing start to try to wean patient from urinary catheter by using Hemostats to clamp catheter tubing for four hours at a time (to monitor how many times patient verbalized the feeling of the need to void). Patient verbalized the feeling of the need to void x's 2 during this shift. Will continue to monitor and report to on-coming nurse. during a four hour period on this shift.
[2020-01-21 19:10] VITALS: BP 97/70
--- NOTE | 2020-01-22 04:08 | NUR ---
Assessments completed. pt a&ox4. complains of back pain which radiates to lower ext. pain partially controlled with tylenol. stack in place and intact. 2 person assist with slideboard to transfer. pt on 6l high flow oxygen. no s/s of acute distress. will cont to monitor
[2020-01-22 06:11] LABS: CALCIUM 8.3 mg/dL (8.5-10.1); CREATININE 0.9 mg/dL (0.6-1.0); POTASSIUM 3.8 mmol/L (3.5-5.1)
[2020-01-22 08:00] VITALS: BP 108/66
--- NOTE | 2020-01-22 08:23 | NUR ---
Nutrition: Seen for weekly follow up. Visited in room during breakfast. Pt reports appetite is stable, but just does not care for the food. Despite this, pt is averaging 97% of meals per the last 6 days (01/15 - 01/20), eating 100% of almost all meals. Assisted w/menu modification as pt becoming tired of turkey/ chicken dishes. Plan to do large ornamental iron erector salad w/ meat, eggs, and vegetables at lunch and baked fish for dinner protein. Pt loves including vegetables. Reminded pt to prioritize lean protein first given prolonged stay, to minimize further muscle loss. No recent BM recorded, but on scheduled bowel meds. Has a RLE calf wound, but no signs/symptoms of infection per wound care. No longer on accu checks, morning glucose per BMP only 98 mg/dl. Keep as low risk.
--- NOTE | 2020-01-22 12:37 | NUR ---
cm visited with pt at bedside " think want [facility] then [facility] then will thick about 3rd. thank you for coming back to visit"/silvina. referral to be sent out.
--- NOTE | 2020-01-22 12:49 | NUR ---
Sitting up in room without s/o distress. Alert and orientated X3, answering questions appropriately. Breath sounds clear t/o, diminished in lower lobes. 6L FIO2 per NC. Reg HR auscultated. Color pale pink with brisk capillary refill and palpable peripheral pulses. +2 pitting edema in R lower extremity. Clear yellow urine per stack. Active bowel sounds over large, rounded abdomen. Dressing per R ankle dry and intact. 1 cm circular reddened area on buttock. Compression dressing on LLE/LBKA. Working with PT/OT t/o morning. 1030 FIO2 down to 5 L per NC, O2 sats 96%. No s/o distress, BP128/70. Remains tachycardic 108. States she has made decision on [facility] facility, message left for Sharona, returned case inspector. 1300 Sitting in room watching TV and eating lunch. No s/o distress.
--- NOTE | 2020-01-22 15:21 | NUR ---
WOUND CARE F/U; ROUNDING WITH DR MARCUS. THE RIGHT LE WAS ASSESSED AND SHOWS MUCH IMPROVEMENT,CLINICALLY BETTER. NO CHANGES ARE NEEDED AT THIS TIME.
--- NOTE | 2020-01-22 17:26 | NUR ---
FAXED REFERRAAL TO [facility] RECEIVED CONFIRMATION AND WILL F/U WITH FACILITY ON MONDAY 01/22.
[2020-01-22 18:59] VITALS: BP 99/66
--- NOTE | 2020-01-22 22:35 | NUR ---
1900 ASSUMED CARE OF PT AFTER BEDSIDE REPORT, 1999 BASELINE ASSESSMENT COMPLETED, SEE ASSESSMENT, PT RESTING IN BED A AND O X 4 PT ABLE TO TURN SELF IN BED, SOCK TO LBKA, RIGHT FOOT WITH REST FROM BOOT, ELEVATED, PULSES PALPABLE SKIN P/W/D, LUNGS WITH SLIGHT WHEEZES BILATERALLY, UNLABORED RESP, WILL CONMTINUE TO MONITOR WITH HOURLY ROUNDING
[2020-01-23 09:00] VITALS: BP 109/85
--- NOTE | 2020-01-23 12:30 | NUR ---
rui notified by bedside nurse that pt wanted to talk. rui visited with her at bedside, and perez. rui informed her that [facility] is ok with accept for rehab on . " oh good i just did not want to try [facility] again and going to have updates for dpao paper work on sunday updated before leave. thank you. you all are so nice and helpful"/lamar.
--- NOTE | 2020-01-23 13:35 | PLAN ---
[facility] [place] [address] REHAB UNIT PLAN OF CARE Name: PASCUAL ADRIAN Room #: 512-P ADM IN M.R.#: [id number] Admission: 01/08/20 Attend Phys: Niko Dorsey MD Discharge: Date of : 34 Report #: [id number] THIS REPORT FOR: //name// CC: Blue Dorsey DATE OF SERVICE: 01/10/2020 PROGRESS NOTE/OVERALL PLAN OF CARE SUBJECTIVE: The patient is seen back in followup. She was seen in the film maker, no distress. Temperature noted to be 97.5, pulse 115, respirations 24, blood pressure 140/81 yesterday morning. Her right lower extremity is being monitored. She is on nasal cannula O2, typically around 5 liters. She has a prior left below-knee amputation and utilized a prosthesis previously. She was in no distress. Functionally, she has been transferring bed to wheelchair utilizing a sliding board. Working on improving her endurance. She has been needing her oxygen turned up some during increased activity. Toilet transfers have been max assist, in occupational therapy. ASSESSMENT: 1. Medical complexity with generalized debilitation. 2. Atrial flutter. 3. Peripheral vascular disease with right common femoral artery 95% stenosis. 4. Right lower extremity wound. 5. Chronic obstructive pulmonary disease, on chronic home O2. 6. Prior left below-knee amputation. 7. Hypertension. PLAN: The overall plan of care is based on the preadmission screen, post-admission physician evaluation and information garnered from therapy assessments. We do have speech therapy seeing her as well from a cognitive perspective and she does have some moderate cognitive deficits along with some severe memory deficits. 1. Estimated length of stay is probably at least 10 days to 2 weeks and potentially longer. 2. Medical prognosis is reasonably good. 3. Anticipated interventions includes the interdisciplinary acute inpatient rehabilitation program. 4. Anticipated functional outcomes would be for the patient to improve as far as her basic transfers, mobility, ADLs as well as her cognition, communication. Hopefully, we can decrease some of the swelling in that the residual limb and should be able don her prosthesis and she can improve to being able to getting up and around at a wheelchair level. 5. Discharge destination is going to be back where she has been living at home alone. She does have a stair lift and was independent with her basic ADLs and IADLs premorbidly. Ideally, we would get her back home with the walker/wheelchair. We will need to further assess for family support. 6. Expected therapy by discipline includes PT, OT and speech 1 hour per day each [address] [address] REHAB UNIT PLAN OF CARE Name: PASCUAL ADRIAN Room #: 512-P [facility] IN M.R.#: [id number] Admission: 01/08/20 Attend Phys: Niko Dorsey MD Discharge: Date of : 34 Report #: [id number] five days a week throughout the duration of the acute inpatient rehabilitation stay. <ELECTRONICALLY SIGNED> By: Niko Dorsey MD 01/23/20 1335 0853 [id number] Niko Dorsey MD /[facility]
--- NOTE | 2020-01-23 13:35 | H ---
[facility] [place] [address] HISTORY AND PHYSICAL Name: PASCUAL ADRIAN Room #: 512-P ADM IN M.R.#: [id number] Admission: 01/08/20 Attend Phys: Niko Dorsey MD Discharge: Date of : 34 Report #: [id number] THIS REPORT FOR: cc: Blue Monroe MD,Blue Dorsey,Niko Reid MD ~ CC: Blue Dorsey DATE OF SERVICE: 01/08/2020 HISTORY AND PHYSICAL/POST-ADMISSION PHYSICIAN EVALUATION HISTORY OF PRESENT ILLNESS: The patient is an 84-year-old female originally admitted to [facility] on 01/02/2020 with weakness, dizziness, poor appetite, found to be in atrial flutter. She was started on Cardizem IV, was seen by Cardiology. She has a right calf wound and documented peripheral vascular disease with wound care following. She underwent angiogram showing extensive plaque causing 95% stenosis. Cardiothoracic Surgery has been involved for consideration of a right common femoral artery endarterectomy. Currently holding off on this for now. The patient has a prior history of a left BKA and has a prosthesis. The plan is to transfer to the acute inpatient rehab [facility] for further work on improving her strength, mobility, ADL independence and endurance. We will be having the multiple oracle soa consultant physicians continue to follow while she is on rehabilitation. PAST MEDICAL HISTORY: Includes hypertension, hyperlipidemia, COPD on chronic home O2, I believe she was on 3 liters at home. PAST SURGICAL HISTORY: Includes left below-knee amputation. ALLERGIES: No known drug allergies. MEDICATIONS: Please see the full medication listing. SOCIAL HISTORY: She premorbidly had been living at home alone. No stairs, has a stair lift inside. She has the left prosthesis. She was independent with ADLs and IADLs. She uses a wheelchair for longer distances and a front-wheeled walker in her apartment. HABITS: No history of alcohol or drug abuse. REVIEW OF SYSTEMS: No current complaints of chest pain, shortness of breath or abdominal discomfort. No specific focal lower extremity pain complaints. PHYSICAL EXAMINATION: [facility] [address] [place] [address] HISTORY AND PHYSICAL Name: PASCUAL ADRIAN Room #: 512-P [facility] IN ..#: [id number] Admission: 01/08/20 Attend Phys: Niko Dorsey MD Discharge: Date of : 34 Report #: [id number] GENERAL: She is a pleasant 84-year-old white female in no obvious distress. VITAL SIGNS: Last recorded temperature 97.6, pulse 107, respirations 18, blood pressure is 124/84. NEUROLOGIC: She is alert, follows basic commands. HEENT: Appeared to be benign. She is on 5 liters nasal cannula. CHEST: Sounded clear to auscultation. CARDIAC: She does have irregularly irregular rate and rhythm. ABDOMEN: Obese, bowel sounds positive, nontender. GENITOURINARY AND RECTAL: Deferred. EXTREMITIES: She has some decreased end range of both upper extremities. Strength is probably a grade 3+ to 4-/5. DTRs are trace to 1. Right lower extremity dressing in place over the right posterior calf, foot and toes. All appear warm. She has some chronic degenerative changes. Strength of the right lower extremity is probably a grade 4-, left lower extremity reveals the old below-knee amputation, which is well healed. There is no specific edema or erythema. She has been mod assist with some bed mobility. ASSESSMENT: An 84-year-old white female with the following problem list: 1. Medical complexity with generalized debilitation. 2. Atrial flutter. 3. Peripheral vascular disease with right common femoral artery 95% stenosis. 4. Right lower extremity wound. 5. Chronic obstructive pulmonary disease, on chronic home O2. 6. Hypertension. PLAN: The patient is admitted for acute in-hospital inpatient rehabilitation from a post-admission physician evaluation prospective. There were no relevant changes since the preadmission screening. Please see the above review of prior current medical and functional conditions and comorbidities. Please see the patient's previous and current functional status. As far as risk of complications, the patient has multiple medical comorbidities as noted above. Initial plan of care involves the interdisciplinary acute inpatient rehabilitation program. Measurable functional goals would be for the patient to become modified independent with transfers, mobility, ADLs, so she can hopefully return back to the home setting. Prognosis is reasonably good. Estimated length of stay probably at least 10 days to 2 weeks. Potential barriers would include again the multiple medical comorbidities and decreased functional status. The patient meets diagnostic criteria for an acute in-hospital inpatient rehabilitation stay. She meets the medical necessity criteria and we will have the multiple oracle soa consultant physicians continue to follow. She does have the tolerance for therapies and has appropriate discharge goals back to the home setting. [address] [address] HISTORY AND PHYSICAL Name: PASCUAL ADRIAN Room #: 512-P [facility] IN M.R.#: [id number] Admission: 01/08/20 Attend Phys: Niko Dorsey MD Discharge: Date of : 34 Report #: [id number] ADDENDUM The patient is on a low endurance program with her atrial flutter and her significant peripheral vascular disease, superimposed on her COPD. <ELECTRONICALLY SIGNED> By: Niko Dorsey MD 01/23/20 1335 0958 1033 Niko Dorsey MD /PMT
--- NOTE | 2020-01-23 19:36 | NUR ---
PATIENT ALERT AND ORIENTED AND COOPERATIVE WITH PLAN OF CARE. RICHARD REMOVED TODAY. NO BM TODAY AND LAXATIVES GIVEN TODAY.
[2020-01-23 20:05] VITALS: BP 105/59
--- NOTE | 2020-01-24 04:32 | NUR ---
ASSUMED PT CARE AT 1900. PT DENIES PAIN. CONCERNED ABOUT LACK OF BOWEL MOVEMENT, HAD A SMALL ONE THIS EVENING ON THE BEDPAN. PITTING EDEMA OF RIGHT ANKLE NOTED. RICHARD WAS PULLED EARLIER TODAY. STUMP EMPLOYEE RELATIONS CONSULTANT IN PLACE. ANTICIPATING DISCHRGE SOON. STATES SHE HAS SLEPT WELL TONIGHT.
[2020-01-24 05:57] LABS: CALCIUM 9.2 mg/dL (8.5-10.1); CREATININE 0.7 mg/dL (0.6-1.0); POTASSIUM 3.7 mmol/L (3.5-5.1)
[2020-01-24 08:00] VITALS: BP 119/75
--- NOTE | 2020-01-24 09:19 | NUR ---
ASSUMED CARE AT 0700. PATIENT IS ALERT AND ORIENTED X4. PATIENT HAS LEFT BKA WITH STUMP FINISHER CARD TENDER. PATIENT HAS SWELLING IN HER RIGHT LEG AND FOOT. PATIENT HAS OPTIFOAM DRESSING TO HER RIGHT LEG. UP IN BED FOR BREAKFAST. FALL AND SAFETY PROTOCOLS IN PLACE. DENIES PAIN AT THIS TIME. CONTINUES TO PROGRESS TOWARDS D/C GOALS. WILL CONTINUE TO MONITER.
[2020-01-24 19:32] VITALS: BP 101/59
--- NOTE | 2020-01-25 00:40 | NUR ---
PT ALERT AND ORIENTED X 4. 02 ON AT 5L PER NC CONT. VOIDING LARGE AMTS YELLOW URINE PER BEDPAN. STUMP CUSHION PADDER INTACT TO LEFT BKA. DRESSING TO RIGHT LEG C/D/I. PT DENIES PAIN OR DISCOMFORT. BED ALARM ON FOR SAFETY. PT APPEARS TO BE SLEEPING ON HOURLY ROUNDS.
[2020-01-25 07:44] VITALS: BP 111/67
--- NOTE | 2020-01-25 17:10 | NUR ---
ASSUMED CARE OF PT AT 0710. PT IS A&OX4. IS ON 5L OF O2/NC WITH HUMIDIFICATION. IS UP WITH 2 ASSIST, GB, & SLIDE BOARD TRANSFER TO CHAIR. FALL PRECAUTIONS & HOURLY ROUNDING MAINTAINED. IS TURNED Q2H. IS ABLE TO ASSIST & TURN SELF TO THE LEFT. HAS BKA ON THE LEFT & CELLULITIS WITH WOUND ON RLE. DRSG INTACT. PRAFO BOOT IN PLACE. PT REPORTS CHRONIC BACK PAIN THAT IS BEING MANAGED WITH TYLENOL & OTHER THERAPUETIC TECHNIQUES. PT IS CURRENTLY EATING DINNER IS BED. CALL LIGHT WITHIN REACH. WILL CONTINUE TO MONITOR. GELY MOYA, PT FRIEND & PT WOULD LIKE TO HAVE THE TRELL TO COME BY TO ROOM AT 1100 01/26/2020 TO HAVE DPOA PAPERWORK NOTARIZED.
[2020-01-25 20:10] VITALS: BP 122/77
--- NOTE | 2020-01-26 03:00 | NUR ---
ASSUMED CARE AT APPROX 1900 EVENING 01/24. PT LYING IN BED WITH HEAD OF BED ELEVATED TALKING ON PHONE. PT ALERT AND ORIENTED X4, PLEASANT AND COOPERATIVE. PT ASSISTED WITH BEDPAN AND HAD LARGE BM TONIGHT.02 AT 5L PER N/C. APPEARS TO BE SLEEPING SOUNDLY NOW. BED ALARM ON AND CALL LIGHT IN REACH. WILL CONTINUE WITH HOURLY ROUNDING.
[2020-01-26 08:00] VITALS: BP 115/71
[2020-01-26 08:39] VITALS: BP 115/71
--- NOTE | 2020-01-26 10:08 | NUR ---
chart copy requested 4s us will complete for dc today. pt dc to [facility] bedside nurse to call report # [phone]. pt ok to transport by wheel chair van and oxygen per nasal cannula.
[2020-01-26] MEDS ORDERED: IPRAT-ALBUT 0.5-3 ML INH ×2 (11:39)
[2020-01-26] MEDS ORDERED: TYLENOL325 MG PO (11:39)
[2020-01-26] MEDS ORDERED: DIGOXIN250 MCG PO (11:39)
[2020-01-26] MEDS ORDERED: PULMICORT0.5 MG/22 INH (11:39)
[2020-01-26] MEDS ORDERED: FLOMAX0.4 MG PO (11:39)
[2020-01-26] MEDS ORDERED: TORSEMIDE20 MG PO (11:39)
[2020-01-26] MEDS ORDERED: ELIQUIS5 MG PO (11:39)
[2020-01-26] MEDS ORDERED: CARDIZEM CD120 MG PO (11:39)
[2020-01-26] MEDS ORDERED: SENNA-TIME S T1 EACH PO (11:39)
[2020-01-26] MEDS ORDERED: MIRALAX17 GM PO (11:39)
[2020-01-26] MEDS ORDERED: MUCINEX600 MG PO (11:39)
[2020-01-26] MEDS ORDERED: PEPCID20 MG PO (11:39)
[2020-01-26] MEDS ORDERED: KLOR-CON M2020 MEQ PO (11:39)
--- NOTE | 2020-01-26 12:43 | NUR ---
PT DISCHARGING TODAY TO [facility] FAXED DC ORDERS/SUMMARY TO FACILITY SPOKE WITH JESSICA IN ADM HE RECEIVED ORDERS AND ARRANGED TRANSPORT BY WC VAN AND 5L O2 FOR 7517-5207 TODAY. NOTIFIED PT'S FAMILY DPOA (GELY) OF DC AND TIME OF TRANSPORT. UNIT NOTIFIED AND CHART COPY PER US. RN TO CALL REPORT.
--- NOTE | 2020-01-26 13:48 | NUR ---
ASSUMED CARES AT 0700. PT AWAKE, ALERT AND ORIENTED*4. DENIES PAIN. HR ELEVATED, PHYSICIAN AWARE AND TREATMENT PROVIDED PER ORDER. RIGHT BKA REMAINS DRY AND INTACT, STAMP ORNAMENTAL METAL FABRICATOR APPRENTICE IN PLACE. ON 5-6L OXYGEN VIA NC, LS CONGESTED, SATS >92%. TRANSFERRED WITH SLIDE BOARD AND TOLERATED WELL. PT DISCHARGED TO SNF AT 1345. REPORT CALLED TO FACILITY. PT TEACHING COMPLETED WITH PT AT THE BEDSIDE.
== END 2020-01-26 13:52 | DRG 947 ==
PROVIDERS: Internal Medicine; Nurse Practitioner; Nurse Practitioner Family; ADMIT Physical Medicine & Rehabilitation
DX: R53.81 Other malaise (principal); J96.21 Acute and chronic respiratory failure with hypoxia; I48.92 Unspecified atrial flutter; L03.115 Cellulitis of right lower limb; E46 Unspecified protein-calorie malnutrition; Z68.41 Body mass index [BMI] 40.0-44.9, adult; Z79.01 Long term (current) use of anticoagulants; I73.9 Peripheral vascular disease, unspecified; J44.9 Chronic obstructive pulmonary disease, unspecified; I10 Essential (primary) hypertension; Z89.512 Acquired absence of left leg below knee; E78.5 Hyperlipidemia, unspecified; Z96.653 Presence of artificial knee joint, bilateral; E78.00 Pure hypercholesterolemia, unspecified; I48.91 Unspecified atrial fibrillation
CPT/HCPCS: 10112

== ENCOUNTER 2020-08-18 14:51 | Inpatient (IN) | payer OTHER, MEDICARE ==
[~2020-08-18] VITALS: Ht 167.6 cm; Wt 99.8 kg
[~2020-08-18 14:51] MED LIST changes: +CARDIZEM CD120 MG PO; +DIGOXIN250 MCG PO; +DILTIAZEM 24HR180 M1 PO; +ELIQUIS5 MG PO; +FLOMAX0.4 MG PO; +IPRAT-ALBUT 0.5-3 ML INH; +KLOR-CON M2020 MEQ PO; +LIPITOR40 MG PO; +MIRALAX17 GM PO; +MUCINEX600 MG PO; +PEPCID20 MG PO; +PULMICORT0.5 MG/22 INH; +SENNA-TIME S T1 EACH PO; +TORSEMIDE20 MG PO; +TYLENOL325 MG PO
[2020-08-18 14:54] VITALS: BP 138/67
[2020-08-18 15:18] LABS: ABSOLUTE NEUTROPHILS 9.1 thou/uL (1.4-8.2); BASOPHILS 0.9 % (0.0-2.0); HEMOGLOBIN 15.6 gm/dL (12.0-15.0); LYMPHOCYTES 8.2 % (24.0-44.0); MCH 33.2 pg (26.0-34.0); MCHC 33.1 g/dL (28.0-37.0); MCV 100.4 fL (80.0-100.0); MONOCYTES 6.8 % (1.0-8.0); PLATELET COUNT 184 thou/uL (150-400); POLYS 83.1 % (36.0-66.0); RBC 4.68 mil/uL (4.20-5.00); RDW 17.6 % (10.5-14.5); WBC 10.9 thou/uL (4.0-11.0)
[2020-08-18 15:28] LABS: ANION GAP 10 mmol/L (7-16); BUN 16 mg/dL (7-18); CHLORIDE 106 mmol/L (98-107); CO2 25 mmol/L (21-32); CREATININE 0.8 mg/dL (0.6-1.0); GLUCOSE 109 mg/dL (74-106); POTASSIUM 4.6 mmol/L (3.5-5.1); SODIUM 141 mmol/L (136-145)
[2020-08-18 15:30] LABS: TROPONIN-I <0.06 ng/mL (<0.06)
[2020-08-18 22:32] VITALS: BP 121/78
[2020-08-18] MEDS ORDERED: POTASSIUM CHLO10 MEQ PO (22:42)
[2020-08-18] MEDS ORDERED: OMEGA 3 PO (22:43)
[2020-08-18] MEDS ORDERED: DUONEB INH (22:44)
[2020-08-18] MEDS ORDERED: [UNRECOGNIZED DRUG - OTHER] TOP (22:46)
[2020-08-18] MEDS ORDERED: DIGOXIN PO (22:47)
[2020-08-18 22:57] VITALS: BP 109/52
[2020-08-19 01:08] VITALS: BP 107/73
--- NOTE | 2020-08-19 06:09 | NUR ---
Pt admitted to 227 before midnight. Pt alert and oriented. VSS on 5L O2. Pt wears 5L at home. Admission hx and assessment done. Wound pictures taken. Consents signed by pt. Pt have some home meds. To send down to pharmacy. Pt oriented to room and call light. Straight cath done this shift for UA. Sample sent down to lab. Pt incontinent of bowel and bladder. Geriatric consult called in. LAC iv 20g with ns @ 80. Call light within reach. Will continue to monitor.
[2020-08-19 06:37] LABS: HEMATOCRIT 44.5 % (37.0-47.0); HEMOGLOBIN 14.1 gm/dL (12.0-15.0); MCHC 31.7 g/dL (28.0-37.0); MCV 103.9 fL (80.0-100.0); RBC 4.29 mil/uL (4.20-5.00); RDW 18.5 % (10.5-14.5); WBC 8.3 thou/uL (4.0-11.0)
[2020-08-19 06:48] LABS: CALCIUM 8.6 mg/dL (8.5-10.1); CREATININE 0.9 mg/dL (0.6-1.0); POTASSIUM 4.7 mmol/L (3.5-5.1)
[2020-08-19 07:04] LABS: URINE BILIRUBIN NEGATIVE (Negative); URINE BLOOD NEGATIVE (Negative); URINE CLARITY CLEAR; URINE GLUCOSE-RANDOM* NEGATIVE (Negative); URINE KETONES NEGATIVE (Negative); URINE LEUKOCYTES-REFLEX NEGATIVE (Negative); URINE NITRITE-REFLEX NEGATIVE (Negative); URINE PROTEIN (DIPSTICK) 1+ (Negative); URINE SPECIFIC GRAVITY >= 1.030 (1.005-1.035); URINE UROBILINOGEN 0.2 E.U./dl (0.2-1.0)
[2020-08-19 07:05] LABS: URINE COLOR LIGHT AMBER
[2020-08-19 07:15] LABS: FINE GRANULAR CASTS 0-3 Few /LPF (None Seen); HYALINE CASTS 0-3 Few /LPF (None Seen); SQUAMOUS 0-3 Few /LPF (0-3)
[2020-08-19 07:16] LABS: BACTERIA-REFLEX 1-9 Few /HPF (None Seen); CRYSTALS None Seen /LPF (None Seen); URINE RBC None Seen /HPF (0-2); URINE WBC-REFLEX 0-5 Rare /HPF (0-5)
--- NOTE | 2020-08-19 07:38 | EKG ---
[facility] [place] [place] [address] ELECTROCARDIOGRAM REPORT Name: PASCUAL ADRIAN Room #: 227-P ADM IN M.R.#: [id number] Admission: 08/18/20 Attend Phys: Facundo Conner Discharge: Date of : 34 Report #: [id number] THIS REPORT FOR: cc: Blue Monroe MD, Bruce H. MD Lundgren, Craig H. MD [facility] ~ THIS REPORT FOR: //name// [facility] ED Test Date: 2020-08-18 Test Time: 16:53:19 Pat Name: PASCUAL ADRIAN Department: Room: [facility] Gender: F Assignment Agent: [facility] : 1935 Requested By: Jacob Gage Order Number: [id number] MD: Jim Barbosa Measurements Intervals [place] Rate: 101 P: NC: QRS: 92 QRSD: 101 T: 242 QT: 300 QTc: 389 Interpretive Statements Atrial fibrillation Nonspecific ST and T wave abnormality Compared to ECG 01/02/2020 14:36:43 Right-axis deviation now present Heart rate has slowed Premature ventricular complexes are no longer present Nonspecific change in the ST and T wave segments Electronically Signed On 08-19-2020 7:37:53 CDT by Jim Barbosa [email or web address] <ELECTRONICALLY SIGNED> By: Jim Barbosa MD, FACC 08/19/20 0737 1653 165 Jim Barbosa MD, FAC /EPI
[2020-08-19 08:39] VITALS: BP 123/72
[2020-08-19 09:13] LABS: TSH 1.888 uIU/mL (0.358-3.740)
--- NOTE | 2020-08-19 12:10 | NUR ---
WOUND CONSULT; THE PATIENT WAS ASSESSSED AND DISCOVERED AN AREA OF PREVIOUS INJURY TO THE RIGHT LE. 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 THE SKIN FOLDS OF HER LARG PANNOUS IS ANGERY RED. THE BUTTOCKS AND SUSAN-AREAS ARE ANGERY RED WELL. RECOMMENDAIONS; 1-RIGHT LE; XEROFORM,SECURE WITH KERLIX 2-ANTIFUNAL CARRIER CREAN TO THE BUTTOCK/PERIAREAS 3-INTERDRY TO THE PANNOUS SKIN FOLD 4-APPLY A PUREWICK EXTERNAL CATHETER. 2-LOW AIR LOSS BED PUMP RN PRESENT DISCUSSED WITH TYRESE
--- NOTE | 2020-08-19 13:04 | NUR ---
INITIAL ASSESSMENT: Received consult. ANTONIO reviewed chart and spoke with nursing and attending physician. Pt was admitted from home due to weakness/wounds. No COVID test ordered. Pt is in SICU. ANTONIO met with pt at bedside. Introduced role of SW. Pt is alert/orientated x 4. Pt reports she lives at home alone. Prior to admission, pt has been independent with ADLs. Pt with hx of left BKA and has prothesis. Pt has a walker, w/c and stairglide at home. Pt has home O2 in place through [facility]. Pt is normally on 4.5-5L of O2. Pt was on 5N in January of this year and then discharged to [facility]. Per pt, [facility]. Pt is currently on service with [facility]. Pt's PCP is Dr. Blue Monroe. Pt's friend/DPOA, Pedro, is supportive and involved in pt's care. SW discussed discharge plans. Pt states she will discuss with Pedro. Therapy ordered to evaluate pt for discharge needs. ANTONIO is following to assist as needed with discharge planning.
[2020-08-19 15:54] VITALS: BP 123/56
[2020-08-19 17:09] VITALS: BP 115/74; BP 120/64
--- NOTE | 2020-08-19 19:27 | NUR ---
ASSUMED CARE AT CHANGE OF SHIFT. ALERTX4 FROM HOME ALONE. DENIES SOB, DENIES CHEST PAIN. TEREZA AREA AND BUTTOCKS ESCORIATED. WOUND CONSULTED WITH ORDERS PLACE. RIGHT LE DRESSING COMPLETED. ANTIFUNGAL TREATMENT TO TEREZA AREA AND ABD FOLD. PAINFULL FOR PATIENT WHEN PERFORMING SUSAN CARE. SMALL BM TODAY. PURWICK IN PLACE. PT IS WHEELCHAIR BOUND WITH A LEFT BKA, ABLE TO TURN FOR CARES. MAX ASSIST TO TRANSFER WITH SLIDE DEVISE. CALLS FOR ASSISTANCE. FALL PRECATIONS IN PLACE. PERSONAL ITEMS IN REACH. PT TRANSFERED TO 437. REPORTED OFF TO RN.
[2020-08-19 19:43] VITALS: BP 102/59
[2020-08-20 03:34] VITALS: BP 105/51
--- NOTE | 2020-08-20 05:17 | NUR ---
PT WAS TRANSFERRED TO THE UNIT FROM CCU IMMEDIATELY AFTER SHIFT CHANGE.PT ALERT.PT ON 4L/NC.PT HAD EXCORRIATIONS AROUND HER SUSAN AREA AND BUTTOCK.SUSAN CARE DONE,ANTIFUNGAL CREAM APPLIED.INTER DRY TO HER PANNUS.PT REPPOSITIONE DWHILE IN BED.EXTERNAL FEMALE CATH IN PLACE.PT HAS L BKA,PROSTHESIS IN THE ROOM.NO BM THIS SHIFT.CALL LIGHT WITHIN REACH.
[2020-08-20 07:35] VITALS: BP 113/63
--- NOTE | 2020-08-20 15:03 | NUR ---
Assumed care of pt. at 0700. Pt. is calm and cooperative. Pt. denies pain and voices no concerns. Fall precautions in place.
--- NOTE | 2020-08-20 16:05 | NUR ---
on-going assessment: CM REVIEWED CHART AND SPOKE WITH PATIENT AND NEED FOR SNF. PT IS AGREEABLE. CM ALSO SPOKE WITH PATIENTS OA GELY [phone] TO DISCUSS. [facility] IS NOT CURRENTLY ACCEPTING PATIENTS. PT WANTED REFERRAL SENT TO [facility]. [facility] IS CURRENTLY NOT ACCEPTING NEW PATIENTS EITHER. PT WAS INTERESTED IN [facility]. [facility], [place] HAS HAD POSITIVE COVID CASES SO PATIENT IS NO LONGER WANTING TO GO THERE. PT IS POSSIBLY INTERESTED IN THE [facility] OR [facility]. CM FAXED REFERRALS AND AWAITING RESPSONSE AT THIS TIME.
--- NOTE | 2020-08-20 16:32 | NUR ---
ON-GOING ASSESSMENT: MULTIPLE FACILITIES PATIENT WAS INTERSTED IN HAVE DECLINED NEW PATIENTS (PREVIOUS NOTE DOCUMENTS FACILITIES). THE [facility] HAS RECEIVED PATIENTS REFERRAL BUT BUSINESS SUPPORT PROFESSIONAL IS CURRENTLY REVIEWING AND THEY MAY NOT HAVE AN ANSWER UNTIL SUNDAY. CM SPOKE WITH [facility] WHO REPORTS SHE IS [facility] CAR REPAIRER TOMORROW AND IF THEY CAN ACCEPT PATIENT THEY WILL REACH OUT TO THE NURSES STATION AND TALK WITH NURSE. CM PROVIDED THEM WITH CONTACT NUMBER. CONTACT FOR [facility] IN ADMISSIONS IS [phone]. IF PATIENT IS ABLE TO GO TO THE [facility] SHE WILL PROVIDE FAX NUMBER AND ARRANGE TRANSPORTATION AT THAT TIME. CM FAXED NEGATIVE COVID TEST OVER TO THE [facility] AND PENDING THEIR ACCEPTANCE PATIENT MAY BE ABLE TO TRANSFER ONCE STABLE. CM WILL CONTINUE TO FOLLOW TO ASSIST NEEDED.
[2020-08-20 16:40] VITALS: BP 108/58
[2020-08-20 21:00] VITALS: BP 112/74
--- NOTE | 2020-08-21 03:44 | NUR ---
PT AOX4 WITH INTERMITTENT FORGETFULNESS. PT REPORTS 4/10 PAIN IN RIGHT KNEE. PT RECEIVING PRN PO APAP Q4HR. PT ALSO REPORTS SOB WHILE ON 2L, PT REPORTS RELIEF AT 5L VIA NC, O2 SATURATION AT 91%. PT TOLERATING PO INTAKE OF FLUIDS AND HEART HEALTHY DIET. PT CONTINUES RESTING IN BED THROUGHOUT SHIFT, FREQUENT REPOSITIONING ENCOURAGED. PT REFUSING SOME POSITION CHANGES DUE TO REPORTS OF COMFORT AND PREFERENCE TO NOT HAVE SLEEP INTERRUPTED. PT NOTED TO HAVE REDDNESS TO SUSAN AREA, SKIN FOLDS, RLE. ALL DRESSINGS INTACT, CHANGED PRIOR TO SHIFT CHANGE. PT ENCOURAGED TO NOTIFY STAFF FOR ALL NEEDS, CALL LIGHT WITHIN REACH, BED ALARM ON, BED IN LOWEST POSITION, FREQUENT MONITORING WILL CONTINUE.
[2020-08-21 06:03] LABS: HEMATOCRIT 43.8 % (37.0-47.0); HEMOGLOBIN 14.1 gm/dL (12.0-15.0); MCH 32.5 pg (26.0-34.0); MCHC 32.1 g/dL (28.0-37.0); MCV 101.4 fL (80.0-100.0); RBC 4.32 mil/uL (4.20-5.00); RDW 17.3 % (10.5-14.5); WBC 8.3 thou/uL (4.0-11.0)
[2020-08-21 08:12] VITALS: BP 126/56
[2020-08-21] MEDS ORDERED: DIGOXIN125 MCG PO (08:59)
--- NOTE | 2020-08-21 14:45 | NUR ---
Assumed care of pt. at 0700. Pt. is calm and cooperative. Pt.'s IV showed signs of infiltration and was DC'd. Pt. was had new IV after lunch because she refused insertion until she was done eating. I reached out to Crystal at [facility] ([facility]) and she said that she would have a bed available tomorrow. Transportation has been set up and scheduled for 1pm tomorrow. Call [phone] on 08/22 to confirm, ask for Maria Guadalupe.
[2020-08-21 17:30] VITALS: BP 128/65
--- NOTE | 2020-08-22 00:39 | NUR ---
TURNING PATIENT WITH WEDGE TO SUPPORT BACK AND KEEP OFF BUTOCKS. ANTIFUNGAL CREAM TO SACRUM/PERINEUM, Z-GUARD TO OPEN AREAS, INTERDRY TO BILATERAL GROIN, AND EXTERNAL CATH DRAINING CLEAR YELLOW URINE. LOOKING FORWARD TO GOING TO THE [facility] AT ONE PM TODAY. C/O STOMACH CRAMPS AND WONDERS IF WE ARE GIVING HER SOME PILL THAT SHE IS NOT USED TO TAKING, DECLINED SENNA TONIGHT ONLY SINCE SHE HAS MOST RECENTLY HAD BM ON 08/19. PATIENT NOT WANTING SALINE LOCK RESTARTED, ORDER OBTAINED FOR OK TO LEAVE OUT SINCE NOT USING NOW AND GOING TO [facility] TODAY.
[2020-08-22 07:30] VITALS: BP 115/51
[2020-08-22 08:05] VITALS: BP 107/65
--- NOTE | 2020-08-22 13:32 | NUR ---
PATIENT WILL BE DISCHARGED AT THIS TIME TO SNF. SHE IS ALERT ORIENTED X4. PLEASANT WITH CARES. RESPIRATIOSN NON LABORED. ON OXYGEN 6L. REPORT CALLED TO OP SNF.
--- NOTE | 2020-08-23 09:57 | NUR ---
LATE ENTRY FROM 08/22/20: CALLED INTO SUNDAY PRIME TIME REPORT AND INFORMED DC ORDERS WRITTEN FOR SKILLED REHAB DC. CALLED [facility] ADMISSION [phone] AND SPOKE WITH GERRY WHO CONFIRMS ABLE TO ACCEPT PT 08/22/20. SPOKE WITH TYRESE HONG AND PROVIDED FAX FOR DC ORDER AND SUMMARY AND # FOR REPORT. GAVE HAL [facility] ADMISSION CONTACT # AND TO FACILITATE TRANSPORT. EL
== END 2020-08-22 16:11 | DRG 189 ==
LOC: ER 14:51 → SICU 19:08 → 4S 19:08 → EROBS 19:08 → SICU 19:08 → 4S 23:06 → SICU 23:17 → 4S 08-19 19:01
PROVIDERS: Emergency Medicine; Nurse Practitioner Family; ADMIT Hospitalist; ATTEND Hospitalist
DX: J96.21 Acute and chronic respiratory failure with hypoxia (principal); E43 Unspecified severe protein-calorie malnutrition; I50.32 Chronic diastolic (congestive) heart failure; R53.81 Other malaise; L89.892 Pressure ulcer of other site, stage 2; L24.9 Irritant contact dermatitis, unspecified cause; J44.9 Chronic obstructive pulmonary disease, unspecified; I73.9 Peripheral vascular disease, unspecified; D53.9 Nutritional anemia, unspecified; I48.91 Unspecified atrial fibrillation; E78.5 Hyperlipidemia, unspecified; I11.0 Hypertensive heart disease with heart failure; E78.00 Pure hypercholesterolemia, unspecified; Z96.653 Presence of artificial knee joint, bilateral; Z20.828 Contact with and (suspected) exposure to other viral communicable diseases; Z79.01 Long term (current) use of anticoagulants; Z79.899 Other long term (current) drug therapy; Z89.512 Acquired absence of left leg below knee
CPT/HCPCS: 10195; 15001; 15002